=== PATIENT | male | born 1985 | race Caucasian/White ===

== ENCOUNTER → 2022-12-24 | Outpatient (CLI) | payer OTHER | LOC: M WHC 14:06 | PROVIDERS: ATTEND Physician Assistant | DX: N62 Hypertrophy of breast (principal) | CPT/HCPCS: 77066; G0279 ==

== ENCOUNTER → 2023-02-20 | Outpatient (CLI) | payer OTHER ==
[2023-02-20 11:21] LABS: HEMATOCRIT 45.1 % (42.0-52.0); HEMOGLOBIN 15.2 g/dl (13.5-17.5); MEAN CORPUSCULAR HEMOGLOBIN 29.3 pg (27.0-33.0); MEAN CORPUSCULAR HGB CONC 33.7 g/dl (32.0-36.5); MEAN CORPUSCULAR VOLUME 87.1 fl (80.0-96.0); PLATELET COUNT, AUTOMATED 217 10^3/uL (150-450); RED BLOOD COUNT 5.18 10^6/uL (4.30-6.10); WHITE BLOOD COUNT 6.7 10^3/uL (4.0-10.0)
[2023-02-20 11:49] LABS: HCG, SERUM QUANTITATIVE < 2.6 MIU/ML
[2023-02-20 11:52] LABS: ALBUMIN 4.1 G/DL (3.2-5.2); ALKALINE PHOSPHATASE 66 U/L (46-116); ALT/SGPT 23 U/L (7.0-40); AST/SGOT 16 U/L (<34); BILIRUBIN,DIRECT 0.2 MG/DL (<0.4); BILIRUBIN,TOTAL 0.4 MG/DL (0.3-1.2); BLOOD UREA NITROGEN 19 MG/DL (9-23); CALCIUM LEVEL 9.5 MG/DL (8.5-10.1); CARBON DIOXIDE LEVEL 27 MMOL/L (20-31); CHLORIDE LEVEL 106 MMOL/L (98-107); GLOMERULAR FILTRATION RATE > 60.0 (>60); GLUCOSE, FASTING 80 MG/DL (60-100); POTASSIUM SERUM 4.6 MMOL/L (3.5-5.1); SODIUM LEVEL 142 MMOL/L (136-145); TOTAL PROTEIN 7.1 G/DL (5.7-8.2)
[2023-02-20 11:54] LABS: FOLLICLE STIMULATING HORMONE 7.5 mIU/ML (1.4-18.1); LUTEINIZING HORMONE 2.5 mIU/ML (1.5-9.3)
[2023-02-20 11:55] LABS: FREE T4 1.35 NG/DL (0.89-1.76)
== END ==
LOC: M LAB 10:25
PROVIDERS: ATTEND Plastic Surgery Surgery of the Hand
DX: N62 Hypertrophy of breast (principal)

== ENCOUNTER 2024-03-10 05:59 | Observation (INO) | payer OTHER ==
[~2024-03-10] VITALS: Ht 182.9 cm; Wt 98.0 kg
[2024-03-10] VITALS (7 sets, daily range): BP systolic 133–168; BP diastolic 85–94; TEMP 97–98.1; O2SAT 94–96
[~2024-03-10 05:59] MED LIST: DULO1CAP6 PO
[2024-03-10] MEDS ORDERED: LR 1,000 ML IV SCH (06:15)
[2024-03-10] MEDS ORDERED: VITA100093 PO (06:55)
[2024-03-10] MEDS ORDERED: HOME MED LIST COMPLETE! XX SCH (06:55)
[2024-03-10] MEDS ORDERED: propofoL 200 MG/20 ML VIAL As Ordered ONE (07:26)
[2024-03-10] MEDS ORDERED: fentaNYL 250 MCG/5 ML INJECTION As Ordered ONE (07:26)
[2024-03-10] MEDS ORDERED: ONDANSETRON 4MG 2ML VIAL As Ordered ONE (07:26)
[2024-03-10] MEDS ORDERED: dexmedeTOMIDine (4MCG/ML)200MCG/50ML BTL (PRECEDEX) As Ordered ONE (07:26)
[2024-03-10] MEDS ORDERED: LIDOCAINE 2% 100MG/5ML SDV (FOR ANES.) As Ordered ONE (07:26)
[2024-03-10] MEDS ORDERED: MIDAZOLAM INJ 2MG/2ML VIAL As Ordered ONE (07:27)
[2024-03-10] MEDS ORDERED: ROCURONIUM BROMIDE 50MG/5ML VIAL As Ordered ONE (07:32)
[2024-03-10] MEDS: ceFAZolin SOD 2 GM in IV 1 EA IV ONE (07:50)
[2024-03-10] MEDS: HEPARIN SOD (PORCINE) 5000UNITS/ML 1ML VIAL/SYRINGE SQ ONE (08:05)
[2024-03-10] MEDS ORDERED: LACRILUBE (AKWA TEARS) OPHTH OINT 3.5GM As Ordered ONE (08:24)
[2024-03-10] MEDS ORDERED: HYDROmorphone HCL 2MG/ML 1ML VIAL As Ordered ONE (08:24)
[2024-03-10] MEDS ORDERED: SUGAMMADEX SODIUM 500 MG/5 ML VIAL (BRIDION) As Ordered ONE (08:24)
[2024-03-10] MEDS ORDERED: ACETAMINOPHEN 1000MG 100ML IV BAG As Ordered ONE (08:24)
[2024-03-10] MEDS ORDERED: ePHEDrine SULFATE 25 MG/5 ML(5MG/ML) SYRINGE As Ordered ONE (08:28)
[2024-03-10] MEDS ORDERED: METOCLOPRAMIDE INJ 10MG/2ML VIAL As Ordered ONE (08:49)
[2024-03-10] MEDS: DULoxetine 30MG CAPSULE (CYMBALTA) PO SCH (09:00)
[2024-03-10] MEDS: EPINEPHrine INJ 1 MG/ML 1ML AMP As Ordered ONE (09:40)
[2024-03-10] MEDS: LIDOCAINE 1% MDV 20ML VIAL As Ordered ONE (09:42)
[2024-03-10] MEDS ORDERED: oxyCODONE 5MG TAB PO PRN (10:20)
[2024-03-10] MEDS ORDERED: ONDANSETRON 4MG 2ML VIAL IV PRN ×2 (10:20→10:45)
[2024-03-10] MEDS ORDERED: fentaNYL 100 MCG/2 ML INJECTION IV PRN (10:20)
[2024-03-10] MEDS: GENTAMICIN SULF 80MG/2ML VIAL As Ordered ONE (10:51)
[2024-03-10] MEDS: PERCOCET 5MG/325MG TAB PO PRN (12:49)
[2024-03-10] MEDS: ceFAZolin SOD 2 GM in IV 1 EA IV SCH (17:14)
[2024-03-10] MEDS: VITAMIN D 1,000 INTERNATIONAL UNITS TABLET PO SCH (17:14)
[2024-03-10] MEDS: LR 1,000 ML IV SCH (17:15)
[2024-03-10] MEDS: ACETAMINOPHEN TAB 650MG DOSE (2X325MG) PO PRN (17:21)
[2024-03-10] MEDS: traMADol 50 MG TAB PO PRN (21:03)
[2024-03-11 01:08] VITALS: BP 142/76; TEMP 97.7; O2SAT 98
[2024-03-11 05:01] VITALS: BP 143/91; TEMP 97.7; O2SAT 96
[2024-03-11 08:39] VITALS: BP 142/81; TEMP 97.9; O2SAT 98
[2024-03-11 09:00] VITALS: BP 142/82; TEMP 97.2; O2SAT 99
[2024-03-11] MEDS ORDERED: TRAM50TA2 PO (11:57)
== END 2024-03-11 13:00 | disposition home or self-care (01) ==
LOC: M SDC 05:59 → M MS5PR 06:00
PROVIDERS: ADMIT Plastic Surgery Surgery of the Hand; ATTEND Plastic Surgery Surgery of the Hand
DX: N62 Hypertrophy of breast (principal); F41.9 Anxiety disorder, unspecified; G43.909 Migraine, unspecified, not intractable, without status migrainosus; Z91.018 Allergy to other foods; Z79.899 Other long term (current) drug therapy
CPT/HCPCS: 19300; 88300; 88305; 96365; 96366; J0131; J0171; J0690; J1100; J1170; J2250; J2405; J2765; J3010